=== PATIENT | female | born 1940 | race Hispanic/Latino ===

== ENCOUNTER 2019-08-08 09:24 | Emergency (ER) | payer MEDICARE ==
[2019-08-08 09:33] VITALS: BP 152/86
[2019-08-08] MEDS ORDERED: HYDROcodone/ACETAMINOPHEN 5-325 MG TAB PO ONE (10:13)
[2019-08-08] MEDS ORDERED: MORPHINE 2 MG/1 ML INJ ONE (10:26)
[2019-08-08] MEDS ORDERED: MORPHINE 4 MG/1 ML INJ IM ONE (10:29)
--- NOTE | 2019-08-08 10:32 | Emergency Department Report ---
HPI - General Chief Complaint: Shoulder Injury Time Seen by Provider: 08/08/19 09:47 - HPI HPI: 79-year-old female presents to the emergency department via EMS from home with a complaint of left shoulder and upper arm pain after she had a fall. Patient got up at around 4:30 AM this morning to use the bathroom and accidentally tripped over her dog. She fell directly onto her left arm and shoulder. She denies hitting her head or any loss of consciousness. She is right-hand dominant. She has a past medical history of degenerative disc disease. Her only complaint is the left arm and shoulder. She did not receive anything for symptoms prior to presentation. ED Past Medical Hx - Past Medical History Previous Medical History?: Yes Hx Hypertension: Yes - Surgical History Additional Surgical History: Tubal ligation - Social History Smoking Status: Never Smoker Substance Use Type: None - Medications Home Medications: Home Medications Medication Instructions Recorded Confirmed Last Taken Type HYDROcodone/APAP 5-325 [[place] 1 each PO Q6HR PRN #12 tablet 08/08/19 Unknown Rx 5/325] ED Review of Systems ROS: Stated complaint: FALL Other details as noted in HPI Comment: All other systems reviewed and negative Constitutional: denies: chills, fever Respiratory: denies: shortness of breath Cardiovascular: denies: chest pain Gastrointestinal: denies: abdominal pain Musculoskeletal: arthralgia. denies: back pain Skin: denies: rash, lesions Neurological: denies: numbness, paresthesias Physical Exam - Physical Exam Vital Signs: Vital Signs 08/08/19 09:30 Temperature 98.6 F Pulse Rate 82 Respiratory 16 Rate Blood Pressure 152/86 O2 Sat by Pulse 98 Oximetry Physical Exam: GENERAL: The patient is well-developed well-nourished. HENT: Normocephalic. Atraumatic. Patient has moist mucous membranes. EYES: Extraocular motions are intact. NECK: Supple. Trachea is midline. CHEST/LUNGS: Clear to auscultation. There is no respiratory distress noted. HEART/CARDIOVASCULAR: Regular. There is no tachycardia. ABDOMEN: Abdomen is soft, nontender. Patient has normal bowel sounds. SKIN: Skin is warm and dry. NEURO: The patient is awake, alert, and oriented. The patient is cooperative. The patient has no focal neurologic deficits. Normal speech. MUSCULOSKELETAL: There is tenderness to palpation to the left upper extremity from the mid forearm to the shoulder, worst at the shoulder joint. Decreased range of motion of the left arm secondary to pain. Capillary refill less than 2 seconds and radial pulse +2/4 to the affected left upper extremity. ED Course Vital Signs 08/08/19 09:30 Temperature 98.6 F Pulse Rate 82 Respiratory 16 Rate Blood Pressure 152/86 O2 Sat by Pulse 98 Oximetry ED Medical Decision Making - Radiology Data Radiology results: image reviewed interpreted by me: X-ray of the left shoulder and humerus shows a proximal humeral neck fracture with some slight displacement but no dislocation. X-ray of the left forearm does not show any fracture, dislocation, or any acute process. - Medical Decision Making Patient fell onto her left side and onto her left arm/shoulder this morning after tripping over her dog. She did not hit her head or had have any loss of consciousness. X-rays were done of the left upper extremity that shows a proximal humeral neck fracture with some mild rotation or displacement but no dislocation. She is neurovascularly intact. She has been placed in coaptation splint and has good outpatient follow-up with an orthopedist through [facility]. She has been given a prescription for some pain medication. She will return to the ER with any worsening of her symptoms or any acute distress. Critical Care Time: No Critical care attestation.: If time is entered above; I have spent that time in minutes in the direct care of this critically ill patient, excluding procedure time. ED Disposition Clinical Impression: Proximal humerus fracture Qualifiers: Encounter type: initial encounter Fracture type: closed Fracture morphology: unspecified fracture morphology Laterality: left Qualified Code(s): S42.202A - Unspecified fracture of upper end of left humerus, initial encounter for closed fracture Disposition: DC-01 TO HOME OR SELFCARE Is pt being admited?: No Condition: Stable Instructions: Arm Fracture in Adults (ED) Additional Instructions: Please follow-up with your orthopedic surgeon early next week. Remain in the splint and sling until follow-up. Return to the emergency department with any worsening of your symptoms or any acute distress. You have been prescribed a medication that is sedating and therefore should not be taken prior to driving, working, and responsible for children and in no way should be mixed with alcohol of any quantity. Prescriptions: HYDROcodone/APAP 5-325 [[place] 5/325] 1 each PO Q6HR PRN #12 tablet PRN Reason: Pain Referrals: [facility] [Provider Group] - 3-5 Days Time of Disposition: 12:03
--- NOTE | 2019-08-08 10:48 | XRay Report ---
LEFT SHOULDER 2 VIEW(S) INDICATION / CLINICAL INFORMATION: fall COMPARISON: None available. FINDINGS: Comminuted and mildly displaced fracture at the neck of the left humerus. There may be rotation of th e humeral head but no dislocation. Scapula and visualized ribs appear to be intact. There is overlyin g soft tissue swelling. Signer Name: Wong Burkett MD Signed: 08/08/2019 10:43 AM Workstation Name: [id number]
--- NOTE | 2019-08-08 11:35 | XRay Report ---
LEFT HUMERUS 2 VIEW(S) LEFT FOREARM 2 VIEWS INDICATION / CLINICAL INFORMATION: fall, arm pain COMPARISON: Left shoulder radiograph from earlier the same day FINDINGS: BONES / JOINT(S): The radius and ulna are intact. Comminuted and mildly displaced and impacted alexander l neck fracture is again seen. 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 SOFT TISSUES: No significant abnormality. Signer Name: Wong Burkett MD Signed: 08/08/2019 11:31 AM Workstation Name: [id number]
== END 2019-08-08 12:46 | disposition home or self-care (01) ==
LOC: ED 09:24
DX: S42.202A Unspecified fracture of upper end of left humerus, initial encounter for closed fracture (principal); I10 Essential (primary) hypertension; Z98.51 Tubal ligation status; Z79.899 Other long term (current) drug therapy; W01.0XXA Fall on same level from slipping, tripping and stumbling without subsequent striking against object, initial encounter; Y93.89 Activity, other specified; Y92.89 Other specified places as the place of occurrence of the external cause; Y99.8 Other external cause status
CPT/HCPCS: 29105; 73030; 73060; 73090; 96372; 99283; J2270